=== PATIENT | female | born 1980 | race Caucasian/White ===

== ENCOUNTER 2023-02-03 13:02 | Outpatient (CLI) | payer OTHER, SELFPAY ==
--- NOTE | 2023-02-03 13:00 | CRLHL7_ITS ---
For Patients: As a result of the Century Cures Act, medical imaging exams and procedure reports are released immediately into your electronic medical record. You may view this report before your referring provider. If you have questions, please contact your health care provider. BILATERAL SCREENING MAMMOGRAM WITH COMPUTER-AIDED DETECTION AND TOMOSYNTHESIS TECHNIQUE: CC and MLO views were obtained. These mammographic images have been obtained using full-field digital technique. These mammographic images were interpreted with the benefit of computer-aided detection. Breast Tomosynthesis was used in this interpretation. COMPARISON FILM: 04/29/2019, 12/18/2020. FINDINGS: There are scattered areas of fibroglandular density IMPRESSION: There is no radiographic evidence for malignancy. ASSESSMENT: BI-RADS Category 1: Negative RECOMMENDATION: Routine screening mammogram in 1 year. A lay language report of this examination will be provided to the patient. Willy Caceres M.D. Diagnostic Radiologist [email or web address] NEAL/Dictated by: Willy Caceres MD @ 02/04/2023 8:36:00 AM (Electronically Signed)
== END 2023-02-03 13:03 | disposition home or self-care (01) ==
LOC: MAMMO 13:03
PROVIDERS: Visit Provider Obstetrics & Gynecology
DX: Z12.31 Encounter for screening mammogram for malignant neoplasm of breast (principal)
CPT/HCPCS: 77063; 77067

== ENCOUNTER 2023-03-10 09:07 | Outpatient (CLI) | payer OTHER, SELFPAY | END 2023-03-10 09:08 | disposition home or self-care (01) | PROVIDERS: Visit Provider Family Medicine | DX: E78.2 Mixed hyperlipidemia (principal); E66.01 Morbid (severe) obesity due to excess calories | CPT/HCPCS: 80061 ==

== ENCOUNTER 2023-04-21 09:07 | Outpatient (CLI) | payer OTHER, SELFPAY | END 2023-04-21 09:08 | disposition home or self-care (01) | PROVIDERS: Visit Provider Family Medicine | DX: E78.2 Mixed hyperlipidemia (principal); E66.01 Morbid (severe) obesity due to excess calories | CPT/HCPCS: 80061 ==

== ENCOUNTER 2024-08-03 10:06 | Outpatient (CLI) | payer OTHER, SELFPAY | END 2024-08-03 10:07 | disposition home or self-care (01) | PROVIDERS: PCP Family Medicine; Visit Provider Family Medicine | DX: E78.2 Mixed hyperlipidemia (principal); Z11.59 Encounter for screening for other viral diseases | CPT/HCPCS: 80053; 80061; 86803 ==